=== PATIENT | female | born 2005 | race Two or more races ===

== ENCOUNTER → 2025-01-27 | Outpatient (CLI) | payer MEDICAID, SELFPAY ==
--- NOTE | 2025-01-27 11:30 | XR_ITS ---
Examination: Breast ultrasound, unilateral, right Date and time of exam: January 27, 2025 1147 hours INDICATIONS: Palpable lump in the right breast on clinical breast examination by physician 6 months ago Technique: Real-time reeder scale ultrasonographic imaging performed right breast including all 4 quadrants as well as nipple retroareolar and axillary region. Findings: No cystic or solid mass IMPRESSION: BI-RADS Category 1: Negative study
== END | disposition home or self-care (01) ==
PROVIDERS: PCP Nurse Practitioner; Referring Provider Family Medicine; Visit Provider Family Medicine
DX: R22.2 Localized swelling, mass and lump, trunk (principal)
CPT/HCPCS: 76641